=== PATIENT | female | born 1980 | race Caucasian/White ===

== ENCOUNTER 2017-01-01 16:44 | Emergency (ER) | payer MEDICAID ==
[~2017-01-01] VITALS: Ht 149.9 cm; Wt 58.1 kg
[2017-01-01 16:45] VITALS: BP 161/87; PULSE 79; RESP 15; TEMP 97.9; O2SAT 100
--- NOTE | 2017-01-01 16:45 | NUR ---
Patient to ER bed 8 to gown for evaluation. Side rails up. Report given to Rupinder LEOS.
--- NOTE | 2017-01-01 16:47 | NUR ---
Seizure precautions in place. Seizure pads applied to gurney. Side rails up.
--- NOTE | 2017-01-01 16:56 | NUR ---
ER MD Silverio at bedside evaluating the patient
--- NOTE | 2017-01-01 17:11 | NUR ---
Pt. brought in to the ER AAOx4 from home by EMS, states that she had an episode of seizure witnessed by her mother, states that this was her first time episode, as per mother the episode lasted about 60 to 70 minutes, pt. c/o headache 06/15 at this time, on mainspring torque tester, family at bedside
[2017-01-01] MEDS ORDERED: SERT-131 PO (17:12)
[2017-01-01] MEDS ORDERED: METO25TA6 PO (17:12)
[2017-01-01] MEDS ORDERED: DILT60TA3 PO (17:12)
[2017-01-01] MEDS ORDERED: CLON0.5T4 PO (17:12)
[2017-01-01] MEDS ORDERED: ROPI0.5T PO (17:12)
--- NOTE | 2017-01-01 17:12 | NUR ---
Medication reconciliation completed with information provided by - pill bottles from patient. Any prior medication reconciliation on file was reviewed and corrected.
[2017-01-01] MEDS ORDERED: ONDANSETRON HCL 4 MG/2 ML VIAL IVP ONE (17:15)
[2017-01-01] MEDS ORDERED: MORPHINE 2 MG/ML INJ. SYRINGE IVP ONE (17:15)
[2017-01-01] MEDS ORDERED: levETIRAcetam 1,000 MG in NS 100 ML IV ONE (17:15)
[2017-01-01 17:20] LABS: BASOPHILS # (AUTO) 0.1 K/uL (0.0-0.2); BASOPHILS % (AUTO) 0.6 % (0.0-2.0); EOSINOPHILS # (AUTO) 0.2 K/uL (0.0-0.4); EOSINOPHILS % (AUTO) 1.7 % (0.0-4.0); HEMATOCRIT 41.2 % (36-48); HEMOGLOBIN 13.9 g/dL (12.0-16.0); LYMPHOCYTES # (AUTO) 4.1 K/uL (1.0-5.5); LYMPHOCYTES % (AUTO) 41.8 % (20.5-51.5); MEAN CORPUSCULAR HEMOGLOBIN 30 pg (27-31); MEAN CORPUSCULAR HGB CONC 34 % (32-36); MEAN CORPUSCULAR VOLUME 90 fL (79.0-98.0); MONOCYTES # (AUTO) 0.8 K/uL (0.0-1.0); MONOCYTES % (AUTO) 8.2 % (1.7-9.3); NEUTROPHILS # (AUTO) 4.6 K/uL (1.8-7.7); NEUTROPHILS % (AUTO) 47.7 % (40.0-70.0); PLATELET COUNT (AUTO) 358 K/uL (130-430); RED BLOOD CELL COUNT(AUTO) 4.58 MIL/uL (4.2-6.2); RED CELL DISTRIBUTION WIDTH 13.7 % (9.0-15.0); WHITE BLOOD COUNT (AUTO) 9.8 K/uL (4.8-10.8)
[2017-01-01 17:36] LABS: CALCIUM 9.2 mg/dL (8.4-11.0); CREATININE 0.89 mg/dL (0.55-1.30); POTASSIUM 3.5 mmol/L (3.5-5.1)
--- NOTE | 2017-01-01 17:41 | NUR ---
pt. out to Radiology via [facility]ro[facility] accompanied by nikko
[2017-01-01 17:42] LABS: ALBUMIN 4.2 g/dL (3.4-4.8); TOTAL BILIRUBIN 0.2 mg/dL (0.0-1.0); TOTAL PROTEIN, SERUM 8.3 g/dL (6.4-8.3)
--- NOTE | 2017-01-01 18:03 | NUR ---
ice chips provided as per pt.'s request MD baconed
[2017-01-01 18:20] VITALS: BP 141/82; PULSE 81; RESP 17; TEMP 98.2; O2SAT 99
--- NOTE | 2017-01-01 18:20 | NUR ---
Patient given written and verbal discharge instructions and verbalizes understanding. ER MD Dr. Silverio discussed with patient the results and treatment provided. Patient in stable condition. ID arm band removed. IV catheter removed intact and dressing applied, no active bleeding. Rx of keppra, lorazepam given. Patient educated on pain management and to follow up with PMD. Pain Scale 0/10 Opportunity for questions provided and answered.
== END 2017-01-01 18:20 | disposition home or self-care (01) ==
LOC: SED 16:44
DX: G40.89 Other seizures (principal); C71.9 Malignant neoplasm of brain, unspecified; Z88.1 Allergy status to other antibiotic agents; Z88.8 Allergy status to other drugs, medicaments and biological substances; Z95.0 Presence of cardiac pacemaker
CPT/HCPCS: 36415; 70450; 80053; 81025; 84703; 85025; 96365; 96375; 99285; J1953; J2270; J2405

== ENCOUNTER 2022-01-19 15:07 | Emergency (ER) | payer MEDICAID ==
[~2022-01-19] VITALS: Ht 149.9 cm; Wt 59.9 kg
[~2022-01-19 15:07] MED LIST: CLON0.5T4 PO; DILT60TA3 PO; METO25TA6 PO; ROPI0.5T PO; SERT-131 PO
[2022-01-19 15:16] VITALS: BP_SYST 158
[2022-01-19 16:25] LABS: BASOPHILS % (AUTO) 0.5 % (0.0-2.0); EOSINOPHILS % (AUTO) 0.5 % (0.0-4.0); HEMATOCRIT 40.3 % (36-48); HEMOGLOBIN 13.6 g/dL (12.0-16.0); LYMPHOCYTES % (AUTO) 30.6 % (20.5-51.5); MEAN CORPUSCULAR HEMOGLOBIN 31 pg (27-31); MEAN CORPUSCULAR HGB CONC 34 % (32-36); MEAN CORPUSCULAR VOLUME 92 fL (79.0-98.0); MONOCYTES # (AUTO) 0.3 K/uL (0.0-1.0); MONOCYTES % (AUTO) 4.5 % (1.7-9.3); NEUTROPHILS # (AUTO) 4.2 K/uL (1.8-7.7); NEUTROPHILS % (AUTO) 63.9 % (40.0-70.0); PLATELET COUNT (AUTO) 423 K/uL (130-430); RED BLOOD CELL COUNT(AUTO) 4.39 MIL/uL (4.2-6.2); RED CELL DISTRIBUTION WIDTH 14.9 % (9.0-15.0); WHITE BLOOD COUNT (AUTO) 6.6 K/uL (4.8-10.8)
[2022-01-19 16:26] LABS: CALCIUM 9.2 mg/dL (8.4-11.0); CREATININE 0.8 mg/dL (0.55-1.30); POTASSIUM 3.3 mmol/L (3.5-5.1)
[2022-01-19 16:32] LABS: TOTAL BILIRUBIN 0.2 mg/dL (0.0-1.0)
[2022-01-19 16:45] LABS: BILIRUBIN,URINE NEGATIVE (NEGATIVE); BLOOD, URINE 3+ (NEGATIVE); CLARITY/URINE CLOUDY (CLEAR); COLOR,URINE YELLOW (YELLOW); GLUCOSE,URINE NEGATIVE (NEGATIVE); KETONES,URINE NEGATIVE (NEGATIVE); LEUKOCYTE ESTERASE ,URINE NEGATIVE (NEGATIVE); NITRITE, URINE NEGATIVE (NEGATIVE); PROTEIN URINE 2+ (NEGATIVE); UROBILINOGEN,URINE 0.2 (0.2-1.0)
[2022-01-19 17:07] LABS: BACTERIA,URINE RARE /HPF (None Seen); MUCUS,URINE 2+ /LPF (None Seen); RBC,URINE >100 /HPF (0-3)
[2022-01-19] MEDS ORDERED: NAPROXEN 250 MG TABLET PO ONE (17:15)
[2022-01-19] MEDS ORDERED: HYDROcodone/ACETAMIN 5-325 MG TAB (NORCO/ VICODIN) PO ONE (17:15)
[2022-01-19] MEDS ORDERED: NAPR-431 PO (17:19)
[2022-01-19] MEDS ORDERED: HYDR-3917 PO (17:19)
[2022-01-19 18:18] VITALS: BP_SYST 158
== END 2022-01-19 18:18 | disposition home or self-care (01) ==
LOC: SED 15:07
DX: N92.0 Excessive and frequent menstruation with regular cycle (principal); N94.6 Dysmenorrhea, unspecified; Z88.1 Allergy status to other antibiotic agents; Z79.899 Other long term (current) drug therapy
CPT/HCPCS: 36415; 76856-TC; 80053; 81000; 81025; 85025; 86886; 86900; 86901; 99284